=== PATIENT | male | born 1975 | race Caucasian/White ===

== ENCOUNTER 2018-03-01 09:04 | Outpatient (CLI) | payer OTHER ==
--- NOTE | 2018-03-01 11:41 | MRI ---
MRI THORACIC SPINE NONCONTRAST: DATE: 03/01/22. HISTORY: A 42-year-old male with M54.14, thoracic radiculopathy. COMPARISON: None. FINDINGS: Vertebral body heights are maintained. Bone marrow signal is normal. Thoracic spinal cord is normal in size and signal, and there is no syrinx. At T5-6, there is mild disk space narrowing and a tiny central/ left paracentral disk-osteophyte comp shi protrusion indenting the thecal sac, but not indenting the spinal cord. No central stenosis. At T6-7, there is mild to moderate disk space narrowing and a small central and left paracentral, sma ll, focal disk-osteophyte complex which abuts the left ventral aspect of the spinal cord, minimally i ndenting it. There is no significant central spinal canal stenosis despite this. At T7-8, there is a small central disk protrusion which abuts and minimally indents the ventral surfa ce of the spinal cord. There is no significant central stenosis despite this. There is no high-grade central spinal canal stenosis at any level. There is no high-grade neural for aminal stenosis at any level. Perivertebral spaces are unremarkable. No scoliosis. IMPRESSION: 1. Mild thoracic spondylosis consisting of mild degenerative disk disease at T5-6, T6-7, and T7-8, w ith small focal disk-osteophyte protrusions and one small disk protrusion. Indentation of the spinal cord at 2 levels. 2. No high-grade central spinal canal stenosis or high-grade neural foraminal stenosis at any level. 3. No compression fracture. POS: [facility]IN
== END 2018-03-01 09:05 | disposition home or self-care (01) ==
LOC: TBSIIMAG 09:04
PROVIDERS: ATTEND Neurological Surgery
DX: M51.14 Intervertebral disc disorders with radiculopathy, thoracic region (principal); M47.24 Other spondylosis with radiculopathy, thoracic region; M25.78 Osteophyte, vertebrae
CPT/HCPCS: 72146

== ENCOUNTER 2018-10-07 15:56 | Outpatient (CLI) | payer OTHER ==
[2018-10-07 17:38] LABS: #Basophils 0.1 thou/uL (0.0-0.2); #Eosinphils 0.2 thou/uL (0.0-0.7); #Lymphocytes 2.4 thou/uL (1.20-3.40); #Monocytes 0.6 thou/uL (0.11-0.59); #Neutrophils 3.2 thou/uL (1.40-6.50); %Basophils 1.5 % (0.0-1.0); %Eosinophils 3.3 % (0.0-10.0); %Lymphocytes 36.5 % (21.0-51.0); %Monocytes 9.5 % (0.0-10.0); %Neutrophils 49.1 % (42.0-75.0); Hemoglobin 13.3 g/dL (14.0-18.0); Mean Corpuscular HGB CONC 32.6 g/dL (32.0-36.0); Mean Corpuscular Hemoglobin 26.6 pg (27.0-31.0); Mean Corpuscular Volume 81.8 fL (78.0-98.0); Mean Platelet Volume 7.7 fL (7.4-10.4); Platelet Count 301 thou/uL (130-400); RBC Distribution Width 13.2 % (11.5-14.5); Red Blood Cell (RBC) Count 4.99 mill/uL (4.70-6.10); White Blood Cell (WBC) Count 6.6 thou/uL (4.8-10.8)
[2018-10-07 17:59] LABS: ALT (SGPT) 38 U/L (8-55); AST (SGOT) 28 U/L (5-34); Albumin 4.5 g/dL (3.5-5.0); Alkaline Phosphatase 51 U/L (40-150); Anion Gap 14 mmol/L (10-20); BUN (Urea Nitrogen) 13 mg/dL (8.9-20.6); Bilirubin, Total 0.7 mg/dL (0.2-1.2); Calc. Creatinine Clearance 0 mL/min (70-130); Calcium 9.4 mg/dL (7.8-10.44); Carbon Dioxide 22 mmol/L (22-29); Chloride 106 mmol/L (98-107); Estimated GFR-MDRD 85; Globulin 2.4 g/dL (2.4-3.5); Glucose 63 mg/dL (70-105); Protein, Total 6.9 g/dL (6.0-8.3); Sodium 138 mmol/L (136-145)
== END 2018-10-07 15:57 | disposition home or self-care (01) ==
LOC: LABBT 15:56
PROVIDERS: ATTEND Surgery
DX: Z01.812 Encounter for preprocedural laboratory examination (principal); K64.9 Unspecified hemorrhoids
CPT/HCPCS: 80053; 85025

== ENCOUNTER 2018-10-09 05:52 | Day surgery (SDC) | payer OTHER ==
[2018-10-07 16:07] VITALS: BMI 34.5
[2018-10-09] MEDS ORDERED: cefOXitin 2 GM VIAL ONE (06:17)
[2018-10-09] MEDS ORDERED: Sodium Chloride 0.9% 100 ML ONE (06:17)
[2018-10-09] MEDS ORDERED: Fentanyl 100 MCG/2 ML VIAL ONE ×3 (06:30→08:43)
[2018-10-09] MEDS ORDERED: Bupivacaine/Epinephrine 0.25% 30 ML VIAL ONE (06:46)
[2018-10-09] MEDS ORDERED: Bacitracin Zinc Ointment 30 gm TUBE ONE (06:46)
[2018-10-09] MEDS ORDERED: Midazolam HCl 2 mg/2 ml Vial ONE (07:24)
[2018-10-09] MEDS ORDERED: Morphine 4 MG/ML VIAL ONE ×2 (08:35→09:20)
[2018-10-09] MEDS ORDERED: Morphine 2 MG/ML SYRINGE ONE ×3 (08:52→09:52)
--- NOTE | 2018-10-09 10:39 | OP ---
DATE OF PROCEDURE: 10/09/2018 PREOPERATIVE DIAGNOSIS: Bleeding grade 3 hemorrhoids. PROCEDURE PERFORMED: PPH stapled hemorrhoidectomy. INDICATIONS: A 42-year-old male, who has been having episodic bright red blood per rectum. Colonoscopy is unremarkable. He reported prolapsing hemorrhoids as well. FINDINGS: Grade 3 prolapsing hemorrhoids, fine. DESCRIPTION OF PROCEDURE: After informed consent was obtained, the patient underwent a mechanical bowel prep at home. He was taken to the operating room, where he underwent general endotracheal anesthesia. He was placed in the prone jackknife position. Buttock cheeks were spread apart with tape. The introducer retractor was inserted within the anal canal maximally and held in place utilizing interrupted 0 silk sutures. Then, the suture guide was inserted and a pursestring of 3-0 Prolene was placed circumferentially in the rectal mucosa. The stapler was opened maximally. The anvil advanced proximal to the pursestring. The strings were brought through the channels on the stapler and tied as a knot, then held closed on the shaft of the anvil of the stapler as the stapler was closed. The stapler was then fired, held for 30 seconds, then released for 30 seconds, then the stapler removed. The specimen inspected. There was no muscle fiber, sent to pathology for further analysis. The staple line inspected. There was one area of bleeding anteriorly. It was controlled with a [id number] of 3-0 chromic suture. Hemostasis assured. The staple line irrigated and irrigation fluid removed. Gel-Foam impregnated bacitracin placed within the rectal and anal canal. The sterile bandage applied. The patient tolerated the procedure well, transferred to Recovery in good condition. Sponge and needle count verified correct x2. Job ID: [id number]
[2018-10-09] MEDS ORDERED: HYDROcodone/Acetaminophen 10/325 mg Tablet ONE (11:03)
== END 2018-10-09 12:30 | disposition home or self-care (01) ==
LOC: SDC 05:52
PROVIDERS: ATTEND Surgery
PROC: 06BY3ZC Excision of Hemorrhoidal Plexus, Percutaneous Approach (ICD-10-PCS; principal; 2018-10-09)
DX: K64.2 Third degree hemorrhoids (principal); E78.5 Hyperlipidemia, unspecified; G43.109 Migraine with aura, not intractable, without status migrainosus; Z87.891 Personal history of nicotine dependence; Z88.8 Allergy status to other drugs, medicaments and biological substances
CPT/HCPCS: 88304; J0131; J0694; J2250; J2270; J3010; J7050

== ENCOUNTER 2019-06-10 13:31 | Emergency (ER) | payer OTHER ==
[~2019-06-10 13:31] MED LIST: Iopamidol-370 76% 500 ML 1 ML ONE
[2019-06-10] MEDS ORDERED: Aspirin Chewable 81 MG TAB ONE (13:43)
[2019-06-10 13:56] LABS: #Basophils 0.1 thou/uL (0.0-0.2); #Eosinphils 0.2 thou/uL (0.0-0.7); #Lymphocytes 2.4 thou/uL (1.20-3.40); #Monocytes 0.7 thou/uL (0.11-0.59); #Neutrophils 4.6 thou/uL (1.40-6.50); %Basophils 0.7 % (0.0-1.0); %Eosinophils 2.5 % (0.0-10.0); %Lymphocytes 30.2 % (21.0-51.0); %Monocytes 9.1 % (0.0-10.0); %Neutrophils 57.5 % (42.0-75.0); Mean Corpuscular Hemoglobin 26.8 pg (27.0-31.0); Mean Corpuscular Volume 81.1 fL (78.0-98.0); Mean Platelet Volume 7.3 fL (7.4-10.4); Platelet Count 296 thou/uL (130-400); RBC Distribution Width 13.7 % (11.5-14.5); Red Blood Cell (RBC) Count 5.23 mill/uL (4.70-6.10)
--- NOTE | 2019-06-10 14:08 | RAD ---
PORTABLE CHEST: HISTORY: Cough, pneumonia. FINDINGS: Heart size and mediastinum are within normal limits. The lungs are clear of infiltrates. No signifi cant bony findings. IMPRESSION: No active intrathoracic disease. POS: [facility]
[2019-06-10 14:20] LABS: ALT (SGPT) 46 U/L (8-55); AST (SGOT) 29 U/L (5-34); Albumin 4.6 g/dL (3.5-5.0); Alkaline Phosphatase 54 U/L (40-110); Anion Gap 11 mmol/L (10-20); BUN (Urea Nitrogen) 12 mg/dL (8.9-20.6); Bilirubin, Total 0.9 mg/dL (0.2-1.2); Calc. Creatinine Clearance 0 mL/min (70-130); Calcium 9.5 mg/dL (7.8-10.44); Carbon Dioxide 26 mmol/L (22-29); Chloride 106 mmol/L (98-107); Estimated GFR-MDRD 85; Globulin 2.4 g/dL (2.4-3.5); Glucose 83 mg/dL (70-105); Lipase 10 U/L (8-78); Potassium 4.2 mmol/L (3.5-5.1); Sodium 139 mmol/L (136-145)
[2019-06-10] MEDS ORDERED: Ketorolac Tromethamine 30 MG/ML VIAL ONE (15:37)
--- NOTE | 2019-06-10 16:47 | CT ---
CT arteriogram chest with IV contrast and 3-D imaging HISTORY: Chest pain. Dyspnea. FINDINGS: There is good contrast opacification of the pulmonary arteries and thoracic aorta with norm al branching of the great vessels at the aortic arch. Small amount of residual thymus within the upper anterior mediastinum. No pleural fluid, pneumothorax, or mediastinal adenopathy. IMPRESSION: No CT evidence of pulmonary embolus.
== END 2019-06-10 17:05 | disposition home or self-care (01) ==
LOC: ERS 13:31
DX: R07.89 Other chest pain (principal); E78.5 Hyperlipidemia, unspecified
CPT/HCPCS: 36415; 71045; 71275; 80053; 83690; 84484; 85025; 93005; J1885; Q9967

== ENCOUNTER 2021-01-04 14:54 | Outpatient (CLI) | payer OTHER | END 2021-01-04 14:55 | disposition home or self-care (01) | LOC: DTY/OP 14:54 | PROVIDERS: ATTEND Family Medicine | DX: Z00.00 Encounter for general adult medical examination without abnormal findings (principal); K76.0 Fatty (change of) liver, not elsewhere classified | CPT/HCPCS: 97802 ==

== ENCOUNTER 2024-07-03 14:27 | Outpatient (CLI) | payer BC | END 2024-07-03 14:28 | disposition home or self-care (01) | LOC: BICMRI 14:27 | PROVIDERS: ATTEND Family Medicine | DX: M47.814 Spondylosis without myelopathy or radiculopathy, thoracic region (principal); M25.78 Osteophyte, vertebrae; G95.89 Other specified diseases of spinal cord | CPT/HCPCS: 72157 ==